=== PATIENT | female | born 1960 | race Caucasian/White ===

== ENCOUNTER 2017-08-29 22:50 | Outpatient (CLI) | payer OTHER ==
--- NOTE | 2017-08-29 23:58 | Ultrasound Report ---
EXAM: LEFT LOWER EXTREMITY VENOUS ULTRASOUND EXAM DATE: 08/29/2017 11:36 PM. CLINICAL HISTORY: LEFT LEG EDEMA, NUMBNESS. COMPARISON: None. TECHNIQUE: Real-time sonographic vascular imaging was performed by the data reduction technician through the lower extremity utilizing both color-flow and Doppler spectral analysis. Multiple sales representative facility services static janelle ges were saved for review. FINDINGS: Common Femoral Vein (CFV): Normal. CFV-GSV Junction: Normal. Profunda Femoral Vein (PFV): Normal. Femoral Vein (FV) Prox: Normal. Femoral Vein (FV) Mid: Normal. Femoral Vein (FV) Dist: Normal. Popliteal Vein: Normal. Posterior Tibial Veins: Normal. Peroneal Veins: Normal. Other: Fluid collection at the lateral side of the knee measuring 2.7 x 0.7 cm. IMPRESSION: 1. No evidence for deep venous thrombosis. 2. Fluid collection lateral to the knee measuring 2.7 x 0.7 cm. [facility] The call report notification system was initiated by Dr. Alberto Mullen at 23:50 hrs on 08/29/17. The above findings were discussed with Narcisa Rivera by Dr. Alberto Mullen at 23:56 hrs on 08/29/17. Referring Provider Line: [phone] SITE ID: [id number]
== END 2017-08-29 22:51 | disposition home or self-care (01) ==
LOC: DI 22:50
PROVIDERS: ATTEND Internal Medicine
DX: R60.0 Localized edema (principal); R20.2 Paresthesia of skin

== ENCOUNTER 2017-08-31 14:42 | Emergency (ER) | payer OTHER ==
[2017-08-31 15:00] LABS: BASOPHILS # (AUTO) 0.1 10^3/uL (0.0-0.1); BASOPHILS % (AUTO) 0.9 %; EOSINOPHILS # (AUTO) 0.3 10^3/uL (0.0-0.7); EOSINOPHILS % (AUTO) 4.9 %; HGB - HEMOGLOBIN 13.3 g/dL (12.0-16.0); LYMPHOCYTES # (AUTO) 1.9 10^3/uL (1.5-3.5); LYMPHOCYTES % (AUTO) 27.9 %; MEAN CORPUSCULAR HEMOGLOBIN 30.7 pg (27.0-31.0); MEAN CORPUSCULAR HGB CONC 33.7 g/dL (32.0-36.0); MEAN PLATELET VOLUME 9.6 fL (7.9-10.8); MONOCYTES # (AUTO) 0.8 10^3/uL (0.0-1.0); MONOCYTES % (AUTO) 11.2 %; NEUTROPHILS # (AUTO) 3.8 10^3/uL (1.5-6.6); NEUTROPHILS % (AUTO) 55.1 %; PLT - PLATELET COUNT 223 10^3/uL (130-450); RED BLOOD COUNT 4.35 10^6/uL (4.20-5.40); RED CELL DISTRIBUTION WIDTH 12.5 % (12.0-15.0)
--- NOTE | 2017-08-31 15:12 | XRAY Report ---
EXAM: CHEST RADIOGRAPHY EXAM DATE: 08/31/2017 03:05 PM. CLINICAL HISTORY: Chest pain. COMPARISON: Chest radiograph and CTA chest 10/09/2014. TECHNIQUE: 1 view. FINDINGS: Lungs/Pleura: No focal opacities are evident. No pleural effusion or pneumothorax. Mediastinum: Normal cardiomediastinal contour. Other: The bones are unremarkable. IMPRESSION: Normal single view chest. [facility] Referring Provider Line: [phone] SITE ID: [id number]
--- NOTE | 2017-08-31 15:12 | XRAY Preliminary Report ---
Exam: XR CHEST 1 VIEW X-RAY IMPRESSION: Normal single view chest. [facility] SITE ID: [id number]
--- NOTE | 2017-08-31 15:15 | ED Physician Documentation ---
PD HPI CHEST PAIN - Stated complaint Stated Complaint: CHEST TIGHTNESS ROGERS/HI BP - Chief complaint Chief Complaint: Cardiac - History obtained from History obtained from: Patient, Friend - History of Present Illness Timing - onset: How many hours ago (2) Timing - onset during: Rest Timing - duration: Hours (2) Timing - details: Gradual onset Pain level max: 3 Pain level now: 3 Quality: Pressure, Tightness Location: Substernal Radiation: Other (non-radiating) Improved by: Nothing Worsened by: Other (nothing) Associated symptoms: No: Shortness of air, Diaphoresis, Nausea, Vomiting, Feeling faint / dizzy, General Weakness, Palpitations, Cough Similar symptoms before: Has not had sx before Recently seen: Clinic (states seen by PCP lately to adjust her BP meds.) Review of Systems Ten Systems: 10 systems reviewed and negative Constitutional: denies: Fever, Chills Ears: denies: Ear pain Nose: denies: Rhinorrhea / runny nose Throat: denies: Sore throat Cardiac: denies: Palpitations, Calf pain Respiratory: denies: Cough GI: denies: Nausea, Vomiting, Diarrhea Skin: denies: Rash Musculoskeletal: denies: Neck pain, Back pain Neurologic: denies: Headache PD PAST MEDICAL HISTORY - Past Medical History Cardiovascular: Hypertension - Past Surgical History Past Surgical History: Yes HEENT: Tonsil/Adenoidectomy - Present Medications Home Medications: Ambulatory Orders Medication Instructions Recorded Confirmed Metoprolol Tartrate 25 mg PO BID 10/09/14 10/09/14 - Allergies Allergies/Adverse Reactions: Allergies Allergy/AdvReac Type Severity Reaction Status Date / Time codeine Allergy Anxiety Verified 10/09/14 09:17 - Social History Does the pt smoke?: No Smoking Status: Never smoker Does the pt drink ETOH?: No Does the pt have substance abuse?: No - Immunizations Immunizations are current?: Yes PD ED PE NORMAL - Vitals Vital signs reviewed: Yes - General General: Alert and oriented X 3, No acute distress - HEENT HEENT: Moist mucous membranes - Neck Neck: Supple, no meningeal sign - Cardiac Cardiac: RRR, No murmur, Strong equal pulses - Respiratory Respiratory: No respiratory distress, Clear bilaterally, Other (mild chest wall tenderness.) - Abdomen Abdomen: Soft, Non tender, Non distended - Back Back: No spinal TTP - Derm Derm: Warm and dry, No rash - Extremities Extremities: No edema, No calf tenderness / cord - Neuro Neuro: Alert and oriented X 3 - Psych Psych: Normal mood, Normal affect Results - Vitals Vitals: Vital Signs - 24 hr 08/31/17 08/31/17 08/31/17 14:47 16:32 17:17 Temperature 36.6 C Heart Rate 81 70 71 Respiratory 18 16 16 Rate Blood Pressure 178/101 H 181/86 H 149/82 H O2 Saturation 98 100 100 Oxygen O2 Source Room air - EKG (time done) 1448 Rate: Rate (enter#) (78) Rhythm: NSR [place]: Normal Intervals: Normal SC QRS: Normal Ischemia: Non specific changes - Labs Labs: Laboratory Tests 08/31/17 08/31/17 08/31/17 14:55 15:10 15:10 WBC 7.0 RBC 4.35 Hgb 13.3 Hct 39.6 MCV 91.0 MCH 30.7 MCHC 33.7 RDW 12.5 Plt Count 223 MPV 9.6 Neut # 3.8 Lymph # 1.9 [place] # 0.8 Eos # 0.3 Baso # 0.1 Absolute Nucleated RBC 0.00 Nucleated RBC % 0.0 Sodium 135 Potassium 3.5 Chloride 103 Carbon Dioxide 26 Anion Gap 6.0 BUN 10 Creatinine 0.6 Estimated GFR (MDRD) 103 Glucose 105 H Calcium 8.4 L Total Bilirubin 0.3 AST 21 ALT 21 Alkaline Phosphatase 51 Troponin I < 0.04 Total Protein 6.9 Albumin 3.8 Globulin 3.1 Albumin/Globulin Ratio 1.2 Lipase 39 08/31/17 16:54 WBC RBC Hgb Hct MCV MCH MCHC RDW Plt Count MPV Neut # Lymph # [place] # Eos # Baso # Absolute Nucleated RBC Nucleated RBC % Sodium Potassium Chloride Carbon Dioxide Anion Gap BUN Creatinine Estimated GFR (MDRD) Glucose Calcium Total Bilirubin AST ALT Alkaline Phosphatase Troponin I < 0.04 Total Protein Albumin Globulin Albumin/Globulin Ratio Lipase - Rads (name of study) cxr Radiology: Prelim report reviewed, EMP read contemporaneously, See rad report ( normal) PD MEDICAL DECISION MAKING - ED course Complexity details: reviewed results, re-evaluated patient, considered differential, d/w patient ED course: Patient is a 56-year-old female who presents to the emergency department with atypical chest pain today. No acute EKG findings. Heart score of 3. Negative troponin 2. Symptoms resolved in the emergency department. States that she had a normal cardiac workup 3 years ago including a cardiac stress test. We will have her start on a baby aspirin and follow-up with her doctor. Patient counseled regarding signs and symptoms for which I believe and urgent re- evaluation would be necessary. Patient with good understanding of and agreement to plan and is comfortable going home at this time This document was made in part using voice recognition software. While efforts are made to proofread this document, sound alike and grammatical errors may occur. Departure - Departure Disposition: 01 Home, Self Care Clinical Impression: Chest pain Qualifiers: Chest pain type: unspecified Qualified Code(s): R07.9 - Chest pain, unspecified Condition: Good Instructions: ED Chest Pain Atypical Unkn Cause Follow-Up: Narcisa Rivera MD [Primary Care Provider] - Within 3 Days Comments: Return if you worsen. Start on a baby aspirin daily until seen by your doctor. You should have a cardiac stress test performed with your doctor. Discharge Date/Time: 08/31/17 17:45
[2017-08-31 15:30] LABS: ALBUMIN 3.8 g/dL (3.2-5.5); ALBUMIN/GLOBULIN RATIO 1.2 (1.0-2.2); BILIRUBIN,TOTAL 0.3 mg/dL (0.2-1.0); CALCIUM 8.4 mg/dL (8.5-10.3); CREATININE 0.6 mg/dL (0.4-1.0); TOTAL PROTEIN 6.9 g/dL (6.7-8.2)
[2017-08-31 17:19] VITALS: BP 149/82
== END 2017-08-31 17:45 | disposition home or self-care (01) ==
LOC: ED 14:42
DX: R07.9 Chest pain, unspecified (principal); R51 Headache; I10 Essential (primary) hypertension
CPT/HCPCS: 36415; 71045; 80053; 83690; 84484; 85025; 93005; 99283; 99284

== ENCOUNTER 2018-09-07 12:05 | Emergency (ER) | payer OTHER ==
[2018-09-07] MEDS ORDERED: KETOROLAC 30 MG/ML VIAL IVP STA (13:10)
[2018-09-07] MEDS ORDERED: SODIUM CHLORIDE 0.9% 1,000 ML IV ONE (13:10)
--- NOTE | 2018-09-07 13:12 | ED Physician Documentation ---
History of Present Illness - Stated complaint Stated Complaint: FEMALE /BLOOD IN URINE - Chief complaint Chief Complaint: General - History obtained from History obtained from: Patient - History of Present Illness Timing: Yesterday (She had typical symptoms of a bladder infection yesterday including urinary frequency and burning. Today she has more left flank pain and hematuria. She thinks she might also have hematochezia but is not convinced. She has had chills without measured fevers. She is nauseous but has not vomited.) Review of Systems Constitutional: reports: Chills. denies: Fever Nose: denies: Rhinorrhea / runny nose, Reviewed and negative Cardiac: denies: Chest pain / pressure, Palpitations Respiratory: denies: Dyspnea, Cough PD PAST MEDICAL HISTORY - Past Medical History Cardiovascular: Hypertension - Past Surgical History Past Surgical History: Yes HEENT: Tonsil/Adenoidectomy - Present Medications Home Medications: Ambulatory Orders Medication Instructions Recorded Confirmed Metoprolol Tartrate 25 mg PO BID 10/09/14 10/09/14 Ciprofloxacin HCl [Cipro] 500 mg PO BID #20 tablet 09/07/18 Meloxicam [Mobic] 7.5 mg PO BID PRN #20 tablet 09/07/18 - Allergies Allergies/Adverse Reactions: Allergies Allergy/AdvReac Type Severity Reaction Status Date / Time codeine Allergy Anxiety Verified 10/09/14 09:17 - Social History Does the pt smoke?: No Smoking Status: Never smoker Does the pt drink ETOH?: No Does the pt have substance abuse?: No - Immunizations Immunizations are current?: Yes PD ED PE NORMAL - Vitals Vital signs reviewed: Yes - General General: Alert and oriented X 3, Other (Appears uncomfortable) - Neck Neck: Supple, no meningeal sign, No bony TTP - Cardiac Cardiac: RRR, No murmur - Respiratory Respiratory: No respiratory distress, Clear bilaterally - Abdomen Abdomen: Normal bowel sounds, Soft, Non tender - Back Back: Other (Tender over the left CVA) - Derm Derm: Normal color, Warm and dry, No rash - Extremities Extremities: No edema, No calf tenderness / cord - Neuro Neuro: Alert and oriented X 3, Normal speech Results - Vitals Vitals: Vital Signs - 24 hr 09/07/18 09/07/18 09/07/18 12:19 12:25 14:25 Temperature 36.3 C L Heart Rate 76 76 100 Respiratory 18 18 14 Rate Blood Pressure 142/75 H 142/75 H 166/74 H O2 Saturation 99 99 99 Oxygen O2 Source Room air - Labs Labs: Laboratory Tests 09/07/18 09/07/18 09/07/18 13:34 13:38 13:38 WBC 14.6 H RBC 4.52 Hgb 13.6 Hct 41.2 MCV 91.2 MCH 30.0 MCHC 33.0 RDW 12.5 Plt Count 189 MPV 9.4 Neut # (Auto) 13.1 H Lymph # (Auto) 0.7 L [place] # (Auto) 0.7 Eos # (Auto) 0.1 Baso # (Auto) 0.1 Absolute Nucleated RBC 0.01 Nucleated RBC % 0.1 Sodium 138 Potassium 3.7 Chloride 101 Carbon Dioxide 26 Anion Gap 11.0 BUN 11 Creatinine 0.6 Estimated GFR (MDRD) 102 Glucose 135 H Calcium 8.9 Total Bilirubin 0.5 AST 25 ALT 25 Alkaline Phosphatase 67 Total Protein 7.4 Albumin 4.0 Globulin 3.4 Albumin/Globulin Ratio 1.2 Lipase 43 Urine Color BROWN Urine Clarity CLOUDY Urine pH 6.0 Ur Specific [place] 1.020 Urine Protein 100 H Urine Glucose (UA) NEGATIVE Urine Ketones NEGATIVE Urine Occult Blood LARGE H Urine Nitrite POSITIVE H Urine Bilirubin NEGATIVE Urine Urobilinogen 0.2 (NORMAL) Ur Leukocyte Esterase SMALL H Urine RBC TNTC H Urine WBC >25 H Ur Squamous Epith Cells RARE Squamous Urine Bacteria Moderate H Ur Microscopic Review INDICATED Urine Culture Comments INDICATED - Rads (name of study) CT A/P Radiology: EMP read contemporaneously (Right adnexal dermoid measuring 9.5 x 6 cm, no renal or ureteral stones or blockages.) PD MEDICAL DECISION MAKING - ED course ED course: 58-year-old woman presents with left flank pain, pyelonephritis versus stone with or without infection. Lot of blood. The CT was negative except for the dermoid which was discussed with her. Urine very positive. She was administered Rocephin and felt well enough to go home. Departure - Departure Disposition: 01 Home, Self Care Clinical Impression: Pyelonephritis, Dermoid cyst of right ovary Condition: Good Record reviewed to determine appropriate education?: Yes Instructions: Pyelonephritis Dc Follow-Up: [facility] [Provider Group] (REGARDING THE DERMOID CYST) Prescriptions: Ciprofloxacin HCl [Cipro] 500 mg PO BID #20 tablet Meloxicam [Mobic] 7.5 mg PO BID PRN #20 tablet PRN Reason: Pain Comments: We will culture your urine, the results should be done in 48-72 hours. If an antibiotic change is necessary we will call you. Return if worse in the meantime, especially if you develop increasing flank pain, fevers, or cannot keep down the medication. Forms: Activity restrictions
[2018-09-07 13:47] LABS: BASOPHILS # (AUTO) 0.1 10^3/uL (0.0-0.1); BASOPHILS % (AUTO) 0.4 %; EOSINOPHILS # (AUTO) 0.1 10^3/uL (0.0-0.7); EOSINOPHILS % (AUTO) 0.4 %; HGB - HEMOGLOBIN 13.6 g/dL (12.0-16.0); LYMPHOCYTES # (AUTO) 0.7 10^3/uL (1.5-3.5); MEAN CORPUSCULAR VOLUME 91.2 fL (81.0-99.0); MEAN PLATELET VOLUME 9.4 fL (7.9-10.8); MONOCYTES # (AUTO) 0.7 10^3/uL (0.0-1.0); NEUTROPHILS # (AUTO) 13.1 10^3/uL (1.5-6.6); NEUTROPHILS % (AUTO) 89.2 %; PLT - PLATELET COUNT 189 10^3/uL (130-450); RED BLOOD COUNT 4.52 10^6/uL (4.20-5.40); RED CELL DISTRIBUTION WIDTH 12.5 % (12.0-15.0); WHITE BLOOD COUNT 14.6 x10^3/uL (4.8-10.8)
[2018-09-07 13:59] LABS: ALBUMIN/GLOBULIN RATIO 1.2 (1.0-2.2); BILIRUBIN,TOTAL 0.5 mg/dL (0.2-1.0); CALCIUM 8.9 mg/dL (8.5-10.3); CREATININE 0.6 mg/dL (0.4-1.0); TOTAL PROTEIN 7.4 g/dL (6.7-8.2)
[2018-09-07 13:59] LABS: BILIRUBIN,URINE NEGATIVE (NEGATIVE); GLUCOSE, URINE (UA) NEGATIVE (NEGATIVE); KETONES,URINE (UA) NEGATIVE (NEGATIVE); LEUKOCYTE ESTERASE, URINE SMALL (NEGATIVE); NITRITE,URINE POSITIVE (NEGATIVE); OCCULT BLOOD,URINE LARGE (NEGATIVE); PROTEIN,URINE 100 mg/dL (NEGATIVE); UROBILINOGEN,URINE 0.2 (NORMAL) E.U./dL (NORMAL)
[2018-09-07 14:01] LABS: CLARITY,URINE CLOUDY (CLEAR); RBC,URINE TNTC /HPF (0-5)
[2018-09-07 14:02] LABS: BACTERIA,URINE Moderate /HPF (None Seen); SQUAMOUS EPITHELIAL CELL,UR RARE Squamous (<= Few)
[2018-09-07] MEDS ORDERED: cefTRIAXone 1 GM in SODIUM CHLORIDE 0.9% MINIBAG 100 ML IV STA (14:09)
--- NOTE | 2018-09-07 15:23 | CT Report ---
Reason: L flank pain Procedure Date: 09/07/2018 Accession Number: [id number] / [id number] Procedure: CT - Abdomen/Pelvis WO CPT Code: FULL RESULT: EXAM: CT ABDOMEN AND PELVIS (CT KUB) EXAM DATE: 09/07/2018 02:38 PM. CLINICAL HISTORY: Left flank pain COMPARISONS: None. TECHNIQUE: Routine axial helical CT imaging was performed through the abdomen and pelvis without IV contrast. Reconstructions: Coronal and sagittal. In accordance with CT protocol optimization, one or more of the following dose reduction techniques were utilized for this exam: automated exposure control, adjustment of mA and/or KV based on patient size, or use of iterative reconstructive technique. FINDINGS: Lung Bases: Unremarkable. Right Kidney/Ureter: There is mild right perinephric stranding. No stones or hydronephrosis. No contour deforming mass. Left Kidney/Ureter: There is mild left perinephric stranding. No stones or hydronephrosis. No evidence of contour deforming mass. Other Solid Organs: There is mild heterogeneity of the spleen. The liver, pancreas, and adrenal glands are unremarkable. Gallbladder/Bile Ducts: Unremarkable. Peritoneal Cavity: No free fluid, free air or gavi adenopathy. Bowel is grossly unremarkable. Pelvic Organs: There is a 9.5 x 6.0 cm fat and calcific density mass within the right adnexa. Uterus and left adnexa are unremarkable. No enlarged pelvic lymph nodes. Vasculature: Unremarkable. Other: None. IMPRESSION: 1. The kidneys demonstrate no stones or hydronephrosis. 2. There is a 9.5 x 6.0 cm right adnexal dermoid. 3. No acute gastrointestinal tract abnormalities are seen. There is no evidence of bowel obstruction or appendicitis. [facility]
[2018-09-07 15:43] VITALS: BP 160/84
== END 2018-09-07 15:41 | disposition home or self-care (01) ==
LOC: ED 12:05
DX: N12 Tubulo-interstitial nephritis, not specified as acute or chronic (principal); D27.0 Benign neoplasm of right ovary; I10 Essential (primary) hypertension
CPT/HCPCS: 36415; 74176; 80053; 81001; 81003; 83690; 85025; 87086; 87181; 96361; 96365; 96375; 99283

== ENCOUNTER 2021-06-25 11:14 | Outpatient (CLI) | payer SELFPAY | END 2021-06-25 11:15 | disposition E | LOC: EMS 11:14 ==